=== PATIENT | female | born 1970 | race Caucasian/White ===

== ENCOUNTER 2016-12-15 08:37 | Outpatient (CLI) | payer MEDICAID ==
--- NOTE | 2016-12-15 09:53 | Ultrasound Report ---
Limited abdominal ultrasound: Elevated liver enzymes. Images of the liver demonstrate a very mild increased echo pattern but there is no attenuation of distal echoes. No focal lesion noted. Normal liver contour and size. Images of the pancreas are unremarkable as are those of the gallbladder. The CBD diameter is 3 mm. The right kidney length is 8.8 cm. The kidney is echogenically unremarkable. The transverse diameter of the proximal abdominal aorta is 17 mm. Impressions: Suspect mild hepatic steatosis.
== END 2016-12-15 08:38 | disposition home or self-care (01) ==
LOC: US 08:37
PROVIDERS: ATTEND Family Medicine
DX: R74.8 Abnormal levels of other serum enzymes (principal); F10.10 Alcohol abuse, uncomplicated; F31.9 Bipolar disorder, unspecified; F41.9 Anxiety disorder, unspecified
CPT/HCPCS: 76705

== ENCOUNTER 2017-05-08 16:00 | Emergency (ER) | payer MEDICAID ==
--- NOTE | 2017-05-08 17:10 | Emergency Department Report ---
ED Dysuria HPI - HPI Duration: 2 Days Location of Discomfort: Suprapubic Symptoms: Dysuria: Yes, Frequency: Yes, Suprapubic Pain: Yes, Flank Pain: No, Fever: No, Hematuria: No (NO KHOA), Abdominal Pain: No, Previous UTI's: Yes ( HR 100 ON EXAM- ETOH- SEE MEDS, ANXIOUS TO LEAVE; REFUSING FLUIDS) <GORDON TORRES - Last Filed: 05/08/17 18:52> <SHARMILA SMITH - Last Filed: 05/11/17 10:32> - HPI Chief Complaint: Urogenital-Female Stated Complaint: POSS. UTI Time Seen by Provider: 05/08/17 17:08 ED Review of Systems ROS: Stated complaint: POSS. UTI Other details as noted in HPI Comment: All other systems reviewed and negative Constitutional: denies: fever Gastrointestinal: denies: abdominal pain, nausea, vomiting, diarrhea, constipation, hematemesis, melena Genitourinary: urgency, dysuria, frequency. denies: hematuria, discharge, abnormal menses, dyspareunia, other (NO CONCERN STD) Musculoskeletal: denies: as per HPI, back pain <GORDON TORRES - Last Filed: 05/08/17 18:52> ROS: Stated complaint: POSS. UTI Other details as noted in HPI <SHARMILA SMITH - Last Filed: 05/11/17 10:32> ED Past Medical Hx - Past Medical History Previous Medical History?: Yes Hx Psychiatric Treatment: Yes (BIPOLAR / ANXIETY / PTSD / INSOMNIA) Additional medical history: FATTY LIVER. ETOH. INSOMINIA. HTN. UTI. SEROQUIL. PROPRAN. ERMORON. FOLIC. CYMBALTA. VIT B1. HYDRODIUR - Surgical History Additional Surgical History: ECTOPIC ; TUBE REMOVED - Social History Smoking Status: Never Smoker Substance Use Type: None <GORDON TORRES - Last Filed: 05/08/17 18:52> <SHARMILA SMITH - Last Filed: 05/11/17 10:32> - Medications Home Medications: Home Medications Medication Instructions Recorded Confirmed Last Taken Type Ciprofloxacin HCl [Cipro] 500 mg PO BID #10 tablet 05/08/17 Unknown Rx Dysuria Exam - Exam General: Vital signs noted. No distress. Alert and acting appropriately. ANXIOUS NO FEVER HR 100 ON EXAM Exam: Yes Moist Mucous Membranes, No CVA Tenderness, No Abdominal Tenderness, No Rigidity or Guarding <GORDON TORRES - Last Filed: 05/08/17 18:52> - Exam General: Vital signs noted. No distress. Alert and acting appropriately. Labs: Lab Results 05/08/17 Range/Units 17:00 Urine Color Yellow (Yellow) Urine Turbidity Clear (Clear) Urine pH 5.0 (5.0-7.0) Ur Specific [place] 1.027 (1.003-1.030) Urine Protein 100 mg/dl (Negative) mg/dL Urine Glucose (UA) Neg (Negative) mg/dL Urine Ketones Neg (Negative) mg/dL Urine Blood Mod (Negative) Urine Nitrite Neg (Negative) Urine Bilirubin Neg (Negative) Urine Urobilinogen < 2.0 (<2.0) mg/dL Ur Leukocyte Esterase Lg (Negative) Urine WBC (Auto) > 182.0 H (0.0-6.0) /HPF Urine RBC (Auto) 113.0 (0.0-6.0) /HPF U Epithel Cells (Auto) 7.0 (0-13.0) /HPF Urine WBC Clumps 3+ /HPF Urine Mucus 3+ /HPF <SHARMILA SMITH S - Last Filed: 05/11/17 10:32> ED Course Vital Signs 05/08/17 16:48 Temperature 98.4 F Pulse Rate 113 H Respiratory 16 Rate Blood Pressure 139/93 O2 Sat by Pulse 95 Oximetry - Reevaluation(s) Reevaluation #1: 05/08/17 18:21 TO ER TODAY W DYSURIA NO CVA TENDERNESS NO FEVER SHE IS NOT CONCERNED FOR STD SHE HAS HX UTI SHE REPORTS ETOH USE AND SHE DOES NOT WANT TO WAIT FOR FLUIDS TO RUN I TOLD HER SHE'D HAVE TO DRINK A LOT OF WATER AND EVEN CRANBERRY JUICE DISCUSSED URINE W PT AND TOLD HER IT IS INFECTED AND SHE WILL NEED FOLLOW UP IDEALLY SHE'S STAY FOR IV/LABS BUT SHE IS ANXIOUS AND NEEDS TO LEAVE- SEE COMORBIDS AND MEDS SHE IS NON TOXIC APPEARING NON ILL APPEARING MEDICATED IM DC HOME W DC POC 05/08/17 18:53 AT TIME OF DC A/O X4 NON ILL NON TOXIC NO FEVER ANXIOUS VERBALIZES UNDERSTANDING OF DC PLAN <GORDON TORRES - Last Filed: 05/08/17 18:52> Vital Signs 05/08/17 05/08/17 05/08/17 16:48 18:28 18:30 Temperature 98.4 F Pulse Rate 113 H 122 H Respiratory 16 18 18 Rate Blood Pressure 139/93 153/99 O2 Sat by Pulse 95 95 Oximetry 05/08/17 18:39 Temperature Pulse Rate Respiratory 18 Rate Blood Pressure 138/98 O2 Sat by Pulse Oximetry <SHARMILA SMITH S - Last Filed: 05/11/17 10:32> ED Medical Decision Making - Medical Decision Making SEE NOTE - Differential Diagnosis UTI V PYLO V STD <GORDON TORRES - Last Filed: 05/08/17 18:52> - Medical Decision Making I spoke to the middle provider regarding this case. The patient did not want to stay for any further lab testing, IV fluid or evaluation. She also has a history of anxiety which could explain the tachycardia upon discharge. The patient did not appear intoxicated to the mid-level provider and had a family member or significant other there to drive her home. <SHARMILA SMITH S - Last Filed: 05/11/17 10:32> Critical care attestation.: If time is entered above; I have spent that time in minutes in the direct care of this critically ill patient, excluding procedure time. <GORDON TORRES A - Last Filed: 05/08/17 18:52> Critical care attestation.: If time is entered above; I have spent that time in minutes in the direct care of this critically ill patient, excluding procedure time. <SHARMILA SMITH - Last Filed: 05/11/17 10:32> ED Disposition Is pt being admited?: No Does the pt Need Aspirin: No Time of Disposition: 17:46 <GORDON TORRES - Last Filed: 05/08/17 18:52> <SHARMILA SMITH S - Last Filed: 05/11/17 10:32> Disposition: DC-01 TO HOME OR SELFCARE Condition: Stable Instructions: Urinary Tract Infection in Women (ED) Additional Instructions: FLUIDS MINIMAL ALCOHOL DRINK WATER MEDS UNTIL GONE GIVEN TODAY FOLLOW UP WITH PCP OR OBGYN SEE NAMES BELOW Prescriptions: Ciprofloxacin HCl [Cipro] 500 mg PO BID #10 tablet Referrals: PRIMARY CARE, [Primary Care Provider] - 3-5 Days CHI ENGLE MD [Staff Physician] - 3-5 Days SANTI PITTS MD [Referring] - 3-5 Days JELANI GIRON MD [Referring] - 3-5 Days
[2017-05-08 17:34] LABS: Bilirubin,Urine NEG (Negative); Blood,Urine MOD (Negative); Ketones,Urine NEG (Negative); Leukocyte Esterase,Urine LG (Negative); Mucus,Urine 3+ /HPF; Nitrite,Urine NEG (Negative); Urobilinogen,Urine < 2.0 mg/dL (<2.0)
[2017-05-08 17:35] LABS: WBC,Urine > 182.0 /HPF (0.0-6.0)
[2017-05-08] MEDS ORDERED: XYLOCAINE 1% MPF 5 mL INFILTRATI ONE (17:42)
[2017-05-08] MEDS ORDERED: ROCEPHIN IM ONE (17:42)
[2017-05-08] MEDS ORDERED: NORCO 5/325 PO ONE (17:43)
[2017-05-08 18:59] VITALS: BP 138/98
== END 2017-05-08 18:45 | disposition home or self-care (01) ==
LOC: ED 16:00
DX: R30.0 Dysuria (principal); R35.0 Frequency of micturition; F31.9 Bipolar disorder, unspecified
CPT/HCPCS: 81001; 87076; 87086; 87186; 96372; 99283; J0696